=== PATIENT | female | born 1990 | race Caucasian/White ===

== ENCOUNTER 2017-09-16 21:05 | Emergency (ER) | payer MEDICAID ==
--- NOTE | 2017-09-16 21:44 | EDM.PDOC ---
ED HPI GENERAL MEDICAL PROBLEM - General Chief Complaint: General Stated Complaint: broken tooth Time Seen by Provider: 09/16/17 21:36 Source of Information: Reports: Patient History Limitations: Reports: No Limitations - History of Present Illness INITIAL COMMENTS - FREE TEXT/NARRATIVE: Patient comes to ER with complaint of tooth pain. States that right upper molar broke today around 11am. Has had pain since then. Has tried OTC meds such as ibuprofen/tylenol without relief. Denies fever. Has noted swollen lymph node right side of neck recently. Denies pain anywhere else. No nausea/emesis/bowel changes. ROS otherwise negative. Does not have ear pain/sore throat/nasal congestion. Says she is living with family member and is currently trying to stay sober. Admits to heavy [place]. Has no insurance but says she is "interviewing" for insurance coverage this next week. Heavy smoker. 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: Acetaminophen, Aspirin, NSAIDS right upper tooth pain Pain Score (Numeric/FACES): 8 - Related Data Allergies Allergy/AdvReac Type Severity Reaction Status Date / Time paroxetine HCl [From Paxil] Allergy Irritabilit Verified 09/16/17 21:18 y Home Meds: Home Meds Ibuprofen [Advil] 1,000 mg PO Q4HR PRN 12/30/13 [History] Acetaminophen [Tylenol] 650 mg PO Q4HR PRN 09/16/17 [History] Clindamycin HCl 300 mg PO Q6HR #20 capsule 09/16/17 [Rx] Past Medical History HEENT History: Reports: Other (See Below) (very poor dentition) Psychiatric History: Reports: ADHD, Addiction, Anxiety, Depression Social & Family History - Tobacco Use Years of Tobacco use: 5 Second Hand Smoke Exposure: Yes - Alcohol Use Alcohol Use History: Yes Alcohol Use in Last Twelve Months: Yes Alcohol Use Comment: Currently is working on sobriety, no recent ETOH use per self report. - Recreational Drug Use Recreational Drug Use: Yes Drug Use in Last 12 Months: Yes Recreational Drug Type: Reports: Marijuana/Hashish Recreational Drug Use Frequency: Not Used In Over 6 Months ED ROS GENERAL - Review of Systems Review Of Systems: See Below Constitutional: Reports: No Symptoms. Denies: Fever, Chills, Diaphoresis HEENT: Reports: Dental Pain. Denies: Ear Discharge, Ear Pain, Eye Discharge, Eye Pain, Nose Pain, Rhinitis, Sinus Problem, Throat Pain, Throat Swelling, Vertigo Respiratory: Reports: No Symptoms Cardiovascular: Reports: No Symptoms GI/Abdominal: Reports: No Symptoms : Reports: No Symptoms Musculoskeletal: Reports: No Symptoms Skin: Reports: No Symptoms Neurological: Reports: No Symptoms Psychiatric: Reports: No Symptoms ED EXAM, GENERAL - Physical Exam Exam: See Below Exam Limited By: No Limitations General Appearance: Alert, WD/WN, No Apparent Distress Eye Exam: Bilateral Eye: EOMI, PERRL Ears: Normal External Exam, Normal Canal, Hearing Grossly Normal, Normal TMs Nose: Normal Inspection Throat/Mouth: Normal Voice, No Airway Compromise, Other (Multiple missing teeth , what teeth remain are all damaged/erroded/have caries. No obvious swelling around remaining teeth right upper jawline where patient reports pain, no drainage, only several remaining teeth noted, entire area uncomfortable with palpation. ) Head: Atraumatic, Normocephalic. No: Facial Swelling Neck: Supple, Non-Tender, Lymphadenopathy (R) Respiratory/Chest: No Respiratory Distress, Lungs Clear, Normal Breath Sounds, No Accessory Muscle Use, Chest Non-Tender Cardiovascular: Regular Rate, Rhythm GI/Abdominal: Soft, Non-Tender Extremities: Normal Capillary Refill Neurological: Alert, Oriented, Normal Cognition, Normal Gait Psychiatric: Normal Affect, Normal Mood Skin Exam: Warm, Dry, Intact, Normal Color Course - Vital Signs Last Recorded V/S: Last Vital Signs Temp 36.8 C 09/16/17 21:07 Pulse 93 09/16/17 21:07 Resp 16 09/16/17 21:07 BP 134/88 09/16/17 21:07 Pulse Ox 97 09/16/17 21:07 - Re-Assessments/Exams Free Text/Narrative Re-Assessment/Exam: 09/16/17 23:44 Given enlarged lymph node on right, patient placed on course of Clindamycin. Was also given to-go bottles of T#3 and Tramadol. Patient declined dental block. Time spent with patient discussing importance of going to dentist to have her teeth properly taken care of. Given the chronic nature of her problem if she is not seen by a dentist, and her past history of drug and alcohol abuse (has snorted pain medication before), she is not a good candidate for narcotic prescriptions in general. She was informed that she should not be coming back to the ER for refills of pain medication and that she needs to establish herself with a local doctor in addition to finding a dentist as soon as possible. Smoking cessation also discussed. Departure - Departure Time of Disposition: 21:44 Disposition: Home, Self-Care 01 Condition: Good Clinical Impression: Tooth pain - Discharge Information Prescriptions: Clindamycin HCl 300 mg PO Q6HR #20 capsule Instructions: Clindamycin capsules, Tramadol tablets, Dental Caries, Easy-to- Read, Diet and Dental Disease, Tooth Injuries, [id number]-[id number], Acetaminophen; Codeine tablets Referrals: PCP,Unknown [Primary Care Provider] - Forms: ED Department Discharge Additional Instructions: Follow up with a dentist mario alberto for definitive care. Finish FULL course of antibiotic treatment, you will need to package pick up the rest of the antibiotics from the pharmacy. As we discussed, we cannot prescribe repeat narcotics for pain from the ER. You will need to follow up with a primary provider and establish local care if terminal superintendent medication will be needed.
== END 2017-09-16 22:00 | disposition home or self-care (01) ==
LOC: LL.ED 21:05
DX: K08.89 Other specified disorders of teeth and supporting structures (principal); Z88.8 Allergy status to other drugs, medicaments and biological substances; Z77.22 Contact with and (suspected) exposure to environmental tobacco smoke (acute) (chronic)
CPT/HCPCS: 99282; 99283